=== PATIENT | female | born 1995 | race Caucasian/White ===

== ENCOUNTER → 2018-10-09 | Outpatient (CLI) | payer BC ==
[~2018-10-09] MED LIST: GADOBUTROL 7.5 MMOL/7.5 ML VIAL IV ONE; SUMA50TA3 PO
--- NOTE | 2018-10-09 10:28 | KCIC ---
EXAM: Brain MRI with and without contrast. HISTORY: Migraines. Visual disturbance. TECHNIQUE: Multiplanar, multisequence magnetic resonance imaging of the brain was performed prior to and following the administration of 7 cc Gadavist intravenous contrast. COMPARISON: None. FINDINGS: There is no restricted diffusion to suggest acute or subacute infarction. There is no susceptibility effect to suggest hemorrhage. There is no mass effect or midline shift. There is no hydrocephalus. There is a tiny focus of T2/FLAIR hyperintensity within the anterior right external capsule. The orbits are unremarkable. There is mild ethmoid sinus predominant paranasal sinus thickening. The mastoid air cells are clear. There are normal flow voids within the cerebral vessels. IMPRESSION: 1. No acute intracranial finding. 2. Tiny focus of signal change within the anterior right external capsule. This is nonspecific and can be seen with the reported history of chronic migraine headaches. No demyelinating lesion is seen. Electronically signed by: Felicia Whitehead MD (10/09/2018 10:24 AM) [id number]
== END | disposition home or self-care (01) ==
LOC: KCIC MRI 08:49
PROVIDERS: ATTEND Family Medicine
DX: G43.109 Migraine with aura, not intractable, without status migrainosus (principal)
CPT/HCPCS: 70553; A9585